=== PATIENT | male | born 1955 | race Hispanic/Latino ===

== ENCOUNTER 2016-08-08 17:00 | Emergency (ER) | payer OTHER ==
[~2016-08-08] VITALS: Ht 172.7 cm; Wt 86.3 kg
[2016-08-08 17:07] VITALS: BP 130/77; PULSE 88; RESP 17; O2SAT 100
[2016-08-08] MEDS ORDERED: LidocaineVisc 2%:Antacid 1:1 10 mL Syringe PO SCH (17:50)
[2016-08-08] MEDS ORDERED: Ondansetron 2 mg/mL 2 mL Inj IVPUSH PRN (17:50)
[2016-08-08 17:52] LABS: BASOPHILS % (AUTO) 0.3 % (0-3); EOSINOPHILS % (AUTO) 3.2 % (0-5); MONOCYTES % (AUTO) 10.5 % (4-12); Mean Corpuscular Hemoglobin 27.1 pg (27.0-35.0); Mean Corpuscular Volume 82.5 fL (81-100); NEUTROPHILS % (AUTO) 46.9 % (40-74); Platelet Count 211 bil/L (150-400)
--- NOTE | 2016-08-08 17:56 | DRSVH ---
PROCEDURE: X-RAY CHEST ONE VIEW, PORTABLE ([id number]) INDICATIONS: cp TECHNIQUE: One view of the chest was acquired. COMPARISON: None. FINDINGS: Surgical changes and devices: None. Lungs and pleura: No pleural effusions or pneumothorax. Lungs are clear. Mediastinum: Mediastinal contours appear normal. Heart size is normal. Bones and chest wall: No suspicious bony lesions. Overlying soft tissues appear unremarkable. IMPRESSION: No acute cardiopulmonary pathology. Dictated by: Maxx Umana M.D. on 08/08/2016 at 17:49 Approved by: Maxx Umana M.D. on 08/08/2016 at 17:49
[2016-08-08 18:17] LABS: TROPONIN T < 0.010 ug/L (0.0-0.011)
[2016-08-08 18:24] LABS: Magnesium 1.6 mg/dL (1.6-2.6)
--- NOTE | 2016-08-08 18:45 | ED.REPORT ---
HPI-Chest Pain 40 and Over Date of Service Aug 08, 2016 ED Provider: Wali Osuna DO The patient is a 61 year old male w/ a hx of DM II and asthma who presents to the ED due to a non-productive cough onset this morning. Associated symptoms include chills, subjective fever and a "burning sensation in his chest." He has had pneumonia previously and the initial symptoms were similar. He denies vomiting, diarrhea, chest pain, headache, dysuria, or any hx of heart disease. Nursing Notes Stated Complaint: CHEST PAIN/BURNING, FEVER Chief Complaint: Chest Pain Nursing Notes Reviewed: Yes Allergies: Coded Allergies: No Known Allergies (Unverified , 08/08/16) General Time Seen by MD: 18:06 Chief Complaint Other (cough) Hx Obtained From: Patient, Son, Contact Center Specialist Arrived By: Walk-in Sudden in Onset?: Yes Onset Occurred: 5 - 8 hours ago Symptom Duration: Since onset Severity: Current: No pain currently Associated with: Reports: Cough, non-productive Recent Healthcare: No recent doctor visit, No recent hospitalization Similar Sx Previous: Yes Past Medical History Past Medical History asthma DM II Past Surgical History Reports: Appendectomy Smoking History Never Smoker Social History Other Social History: Good social support, Local resident Ambulatory Status Independent Review of Systems Constitutional: Reports: Chills, Fever Respiratory: Reports: Non-productive cough Cardiovascular: Denies: Chest pain GI: Denies: Diarrhea, Nausea, Vomiting Musculoskeletal: Denies: Back pain Neurologic: Denies: Headache Complete sys rev & neg: except as marked. Male: Denies Dysuria Physical Exam Initial Vital Signs Vital Signs (First) Date Time Temp Pulse Resp B/P Pulse Ox O2 Delivery O2 Flow Rate FiO2 08/08/16 17:07 37 88 17 130/77 100 Room Air Initial VS: Reviewed General/Constitutional: Awake, Alert, No acute distress, Cooperative, Not toxic appearing Respiratory / Chest: No respiratory distress, No wheezing crackles in left base Cardiovascular: Heart rate NL, Regular rhythm, Heart sounds NL, No gallop, No murmurs, No rubs Abdomen: Atraumatic, Soft, Non-tender Neck: Atraumatic, Supple Lower Extremity / Pelvis / MS: Atraumatic, Inspection NL, No deformity Skin: Atraumatic, Warm, Dry Neurologic: Oriented X3, Speech NL, No motor deficits Head / Eyes: Atraumatic, Normocephalic, PERRL, EOMI Upper Extremity / MS: Atraumatic, Inspection NL, No deformity Interpretation & Diagnostics Lab Results Interpretation Result Diagram: 08/08/16 1743 08/08/16 1743 Test 08/08/16 17:43 08/08/16 22:10 White Blood Count 6.7th/mm3 (3.8-10.1) Red Blood Count 4.46mil/mm3 (4.40-5.80) Hemoglobin 12.1g/dL (13.8-17.2) Hematocrit 36.8% (41.0-50.0) Mean Corpuscular Volume 82.5fL (81-100) Mean Corpuscular Hemoglobin 27.1pg (27.0-35.0) Mean Corpuscular Hemoglobin Concent 32.9% (32.0-37.0) Red Cell Distribution Width 13.5% (12.3-15.4) Platelet Count 211bil/L (150-400) Neutrophils (%) (Auto) 46.9% (40-74) Lymphocytes (%) (Auto) 38.9% (14-46) Monocytes (%) (Auto) 10.5% (4-12) Eosinophils (%) (Auto) 3.2% (0-5) Basophils (%) (Auto) 0.3% (0-3) D-Dimer < 0.50mg/L FEU (<0.50) Sodium Level 137mEq/L (134-144) Potassium Level 4.0mEq/L (3.5-5.2) Chloride Level 101mEq/L (97-108) Carbon Dioxide Level 22mmol/L (18-29) Blood Urea Nitrogen 17mg/dL (8-27) Creatinine 0.75mg/dL (0.76-1.27) Estimat Glomerular Filtration Rate 112mL/min (>59) Glucose Level 88mg/dL (60-99) Calcium Level 9.8mg/dL (8.5-10.1) Magnesium Level 1.6mg/dL (1.6-2.6) Total Bilirubin 0.2mg/dL (0.0-1.2) Aspartate Amino Transf (AST/SGOT) 17U/L (0-50) Alanine Aminotransferase (ALT/SGPT) 14U/L (0-44) Alkaline Phosphatase 92U/L (25-160) Total Protein 7.1g/dL (6.4-8.4) Albumin 4.2g/dL (3.4-5.0) Troponin T 0.010ug/L (0.0-0.011) ECG Interpretation Time: 17:42 Interpreted by: ED physician Normal ECG Interpretation: Normal ECG w/ rate of... (77), No acute ischemic changes X-Ray Chest Interpretation Chest Xray Interpretation: IMPRESSION: No acute cardiopulmonary pathology. Dictated by: Maxx Umana M.D. on 08/08/2016 at 17:49 Approved by: Maxx Umana M.D. on 08/08/2016 at 17:49 View: Portable Interpretation / Wet Read by: Interpret - Radiologist Re-Eval/Medical Decision Med Decision/Clinical Course This a very pleasant 61-year-old male who presents with pleuritic chest pain, fever and cough. He had no ripping or tearing pain. He had no anginal type symptoms. He had some faint crackles in the bases of both lung aparicio. X-ray was reassuring. Laboratory work is reassuring. Pulmonary AL rule out based on risk, pulmonary emboli rule out criteria and negative d-dimer and low risk well score. AL ruled out with serial troponins. I will placement a course of doxycycline and have close outpatient follow-up. Counseled Regarding: Diagnosis, Lab results, Need for follow-up, When/why to return to ED Discharge & Departure Primary Impression: Pleuritic chest pain Additional Impression: Bronchitis Disposition: Home Discharge Condition All VS Reviewed: Yes Condition: Stable Patient Instructions: Acute Bronchitis (ED) Additional Instructions: Thank you for entrusting us with your care today. Your chest x-ray, imaging, and laboratory work were all normal and do not show any acute findings. I am sending you home with doxycycline. Take this twice daily for five days. Avoid sunlight while on the doxycycline. Take as directed. Follow up with your primary care physician in the next week. Return to the Emergency Department for any new or worsening symptoms including chest pain, difficulty breathing, lightheadedness, dizziness, and difficulty walking. Referrals: [facility] (PCP) Scribe Attestation Portion of this note were transcribed by Lakesha Mackey. I, Dr. Osuna, personally performed the history, physical exam, and medical decision-making: I reviewed and confirmed the accuracy for the information in the transcribed note. Signed by: zaria Hayes, 08/08/16 2100 copies to: [facility] Todd P DO Aug 08, 2016 18:45 Lakesha Mackey Aug 08, 2016 18:54
[2016-08-08 20:45] VITALS: BP 111/65; PULSE 71; RESP 15; O2SAT 99
[2016-08-08 22:59] VITALS: BP 119/67; PULSE 82; RESP 16; O2SAT 97
== END 2016-08-08 23:12 | disposition home or self-care (01) ==
LOC: SED 17:00
DX: R07.81 Pleurodynia (principal); J40 Bronchitis, not specified as acute or chronic; E11.9 Type 2 diabetes mellitus without complications; J45.909 Unspecified asthma, uncomplicated; R50.9 Fever, unspecified